=== PATIENT | male | born 1995 | race African-American/Black ===

== ENCOUNTER 2023-11-08 13:56 | Inpatient (IN) | payer OTHER ==
[2023-11-08 14:57] LABS: HEMATOCRIT 44.6 % (42.0-52.0); HEMOGLOBIN 14.5 g/dl (13.5-17.5); MEAN CORPUSCULAR HEMOGLOBIN 28.9 pg (27.0-33.0); MEAN CORPUSCULAR HGB CONC 32.5 g/dl (32.0-36.5); PLATELET COUNT, AUTOMATED 255 10^3/uL (150-450); RED BLOOD COUNT 5.01 10^6/uL (4.30-6.10); WHITE BLOOD COUNT 5.1 10^3/uL (4.0-10.0)
[2023-11-08] MEDS ORDERED: HOME MED LIST COMPLETE! XX SCH (15:05)
[2023-11-08 15:27] LABS: ETHYL ALCOHOL (ETHANOL) < 0.003 % (0.000-0.010)
[2023-11-08 15:29] LABS: ALBUMIN 4.1 G/DL (3.2-5.2); ALKALINE PHOSPHATASE 67 U/L (46-116); ALT/SGPT 21 U/L (7.0-40); AST/SGOT 17 U/L (<34); BILIRUBIN,DIRECT 0.2 MG/DL (<0.4); BILIRUBIN,TOTAL 0.8 MG/DL (0.3-1.2); BLOOD UREA NITROGEN 17 MG/DL (9-23); CALCIUM LEVEL 9.6 MG/DL (8.5-10.1); CARBON DIOXIDE LEVEL 28 MMOL/L (20-31); CHLORIDE LEVEL 102 MMOL/L (98-107); CREATININE FOR GFR 1.31 MG/DL (0.70-1.30); GLOMERULAR FILTRATION RATE > 60.0 (>60); GLUCOSE, FASTING 84 MG/DL (60-100); POTASSIUM SERUM 4.4 MMOL/L (3.5-5.1); SALICYLATE LEVEL < 3.0 MG/DL (<30); SODIUM LEVEL 136 MMOL/L (136-145); TOTAL PROTEIN 7.2 G/DL (5.7-8.2)
[2023-11-08 15:31] LABS: THYROID STIMULATING HORMONE 1.113 uIU/ML (0.55-4.78)
[2023-11-08 15:37] LABS: AMPHETAMINES LEVEL URINE NEGATIVE (NEGATIVE); BARBITURATES URINE NEGATIVE (NEGATIVE); BENZODIAZEPINES URINE NEGATIVE (NEGATIVE); CANNABINOIDS URINE NEGATIVE (NEGATIVE); COCAINE METABOLITE URINE NEGATIVE (NEGATIVE); METHADONE URINE NEGATIVE (NEGATIVE); OPIATES URINE NEGATIVE (NEGATIVE); PHENCYCLIDINE URINE NEGATIVE (NEGATIVE)
[2023-11-08] MEDS ORDERED: traZODone 50 MG TAB PO PRN (16:55)
[2023-11-08] MEDS ORDERED: IBUPROFEN 400MG TAB PO PRN (16:55)
[2023-11-08] MEDS ORDERED: MAALOX 30 ML SUSP *UDC PO PRN (16:55)
[2023-11-08] MEDS ORDERED: ACETAMINOPHEN TAB 650MG DOSE (2X325MG) PO PRN (16:55)
[2023-11-08] MEDS ORDERED: diphenhydrAMINE 25MG CAP PO PRN (16:55)
[2023-11-08] MEDS ORDERED: MOM 30ML SUSPENSION UDC PO PRN (16:55)
[2023-11-08 18:55] VITALS: BP 129/59; TEMP 97.7; O2SAT 100
[2023-11-09 06:18] VITALS: BP 101/55; TEMP 98.3; O2SAT 97
[2023-11-09 15:36] VITALS: BP 121/56; TEMP 99.1; O2SAT 96
[2023-11-09 18:19] LABS: HEMOGLOBIN A1c 5.2 % (4.0-6.0)
[2023-11-09 18:21] LABS: C REACTIVE PROTEIN QUANTITATIV < 0.40 MG/DL (<1.0)
[2023-11-09 18:22] LABS: CHOLESTEROL LEVEL 212 MG/DL (<200); CHOLESTEROL RISK RATIO 3.91 (<5); HDL CHOLESTEROL 54.2 MG/DL (>40); LDL CHOLESTEROL 136.8 MG/DL (<100); NON-HDL-C 157.8 MG/DL; TRIGLYCERIDES LEVEL 105 MG/DL (<150)
[2023-11-09 18:24] LABS: FREE T4 1.18 NG/DL (0.89-1.76)
[2023-11-09 18:25] LABS: THYROID STIMULATING HORMONE 1.095 uIU/ML (0.55-4.78); TOTAL 25(OH) VITAMIN D 13.2 NG/ML (20.0-100.0); VITAMIN B12 LEVEL 1858 PG/ML (211-911)
[2023-11-10 06:00] VITALS: BP 128/63; TEMP 98.5; O2SAT 99
== END 2023-11-10 11:45 | disposition home or self-care (01) | DRG 880 ==
LOC: M ED 13:56 → M ED INP 16:53 → M PSY 18:31
PROVIDERS: ADMIT Student in an Organized Health Care Education/Training Program; ATTEND Student in an Organized Health Care Education/Training Program
DX: F41.0 Panic disorder [episodic paroxysmal anxiety] (principal); R45.851 Suicidal ideations; F43.10 Post-traumatic stress disorder, unspecified; Z62.810 Personal history of physical and sexual abuse in childhood; Z63.5 Disruption of family by separation and divorce; Z88.0 Allergy status to penicillin; F43.20 Adjustment disorder, unspecified

== ENCOUNTER 2024-02-03 06:25 | Emergency (ER) | payer OTHER | END 2024-02-03 18:16 | disposition left against medical advice (07) | LOC: M ED 06:25 | DX: Z53.21 Procedure and treatment not carried out due to patient leaving prior to being seen by health care provider (principal) ==